=== PATIENT | female | born 1975 | race Caucasian/White ===

== ENCOUNTER 2017-03-05 11:14 | Emergency (ER) | payer MEDICAID ==
[~2017-03-05] VITALS: Ht 162.6 cm; Wt 72.6 kg
[2017-03-05 11:15] VITALS: BP_SYST 114
--- NOTE | 2017-03-05 11:19 | NUR ---
Patient triaged and placed in waiting room. VSS and patient appears in no acute distress at this time. Accompanied by FRIEND, awaiting available bed, and MD notified of need for MSE.
--- NOTE | 2017-03-05 11:46 | NUR ---
Pt report received from JUANITA Gonzalez. Pt c/o anxiety with intermittent chest pressure. Pt denies c/o SOB or C/P at this time. NSR, VSS.
--- NOTE | 2017-03-05 11:46 | NUR ---
BROUGHT BACK TO BED #6 AND REPORT GIVEN TO SHARDA
--- NOTE | 2017-03-05 11:51 | NUR ---
DR AWAN AT BEDSIDE FOR EVALUATION
[2017-03-05] MEDS ORDERED: ALPRAZolam 0.25 MG TABLET PO ONE (12:00)
[2017-03-05 12:09] LABS: BASOPHILS % (AUTO) 0.5 % (0.0-2.0); EOSINOPHILS % (AUTO) 0.5 % (0.0-4.0); HEMATOCRIT 37.9 % (36-48); HEMOGLOBIN 12.9 g/dL (12.0-16.0); LYMPHOCYTES # (AUTO) 2.4 K/uL (1.0-5.5); MEAN CORPUSCULAR HEMOGLOBIN 30 pg (27-31); MEAN CORPUSCULAR HGB CONC 34 % (32-36); MEAN CORPUSCULAR VOLUME 88 fL (79.0-98.0); MONOCYTES # (AUTO) 0.6 K/uL (0.0-1.0); MONOCYTES % (AUTO) 6.4 % (1.7-9.3); NEUTROPHILS # (AUTO) 6.5 K/uL (1.8-7.7); NEUTROPHILS % (AUTO) 67.6 % (40.0-70.0); PLATELET COUNT (AUTO) 348 K/uL (130-430); RED BLOOD CELL COUNT(AUTO) 4.31 MIL/uL (4.2-6.2); RED CELL DISTRIBUTION WIDTH 13.9 % (9.0-15.0); WHITE BLOOD COUNT (AUTO) 9.5 K/uL (4.8-10.8)
[2017-03-05 12:20] LABS: CALCIUM 9.5 mg/dL (8.4-11.0); CREATININE 0.67 mg/dL (0.55-1.30); POTASSIUM 3.9 mmol/L (3.5-5.1)
[2017-03-05 12:24] LABS: ALBUMIN 4.2 g/dL (3.4-4.8); TOTAL BILIRUBIN 0.3 mg/dL (0.0-1.0)
[2017-03-05 13:15] VITALS: BP_SYST 115
--- NOTE | 2017-03-05 13:15 | NUR ---
Patient given written and verbal discharge instructions and verbalizes understanding. ER MD discussed with patient the results and treatment provided. Patient in stable condition. ID arm band removed. Rx of Xanax given. Patient educated on pain management and to follow up with PMD within 2-3days. Pain Scale 0/10. Opportunity for questions provided and answered.
== END 2017-03-05 13:15 | disposition home or self-care (01) ==
LOC: SED 11:14
DX: F41.0 Panic disorder [episodic paroxysmal anxiety] (principal)
CPT/HCPCS: 36415; 71045; 80053; 84484; 85025; 93005; 99285

== ENCOUNTER 2018-07-29 20:37 | Emergency (ER) | payer MEDICAID ==
[~2018-07-29] VITALS: Ht 162.6 cm; Wt 74.8 kg
[2018-07-29 20:46] VITALS: BP_SYST 154
--- NOTE | 2018-07-29 20:46 | NUR ---
Patient to ER bed 1 to gown for evaluation. Side rails up.
--- NOTE | 2018-07-29 20:50 | NUR ---
Pt is AAO x 4 and ambulatory c/o headache that started four hours ago. Pt states she started to feel a headache come on the right side of head with bilateral eye twitching. Pt feels nauseous but denies vomiting. No other injuries/complaints per patient or noted.
--- NOTE | 2018-07-29 20:54 | NUR ---
ER Dr. Acevedo at bedside examining patient.
[2018-07-29] MEDS ORDERED: LORazepam 2 MG/ML VIAL (FOR ER USE) IM ONE (21:00)
[2018-07-29] MEDS ORDERED: KETOROLAC TROMETHAMINE 60 MG/2 ML VIAL IM ONE (21:00)
--- NOTE | 2018-07-29 21:15 | NUR ---
Medications were given, pt tolerated well. No adverse reaction, will continue to monitor.
[2018-07-29 22:13] VITALS: BP_SYST 138
--- NOTE | 2018-07-29 22:13 | NUR ---
dPatient given written and verbal discharge instructions and verbalizes understanding. ER MD discussed with patient the results and treatment provided. Patient in stable condition. ID arm band removed. Rx of Naprosyn given. Patient educated on pain management and to follow up with PMD. Pain Scale 0. Opportunity for questions provided and answered. Medication side effect fact sheet provided.
== END 2018-07-29 22:13 | disposition home or self-care (01) ==
LOC: SED 20:37
DX: F41.9 Anxiety disorder, unspecified (principal); G44.209 Tension-type headache, unspecified, not intractable
CPT/HCPCS: 93005; 96372; 99284; J1885; J2060; 99283